=== PATIENT | male | born 1995 | race Caucasian/White ===

== ENCOUNTER → 2017-01-01 | Day surgery (SDC) | payer OTHER ==
[~2017-01-01] VITALS: Ht 180.3 cm; Wt 117.9 kg
--- NOTE | 2017-01-04 19:52 | Operative Report ---
Operative/Inv Procedure Report Surgery Date: 01/01/17 Name of Procedure: Excision of pilonidal cyst with intermediate complexity closure Pre-Operative Diagnosis: Pilonidal cyst Post-Operative Diagnosis: Same Estimated Blood Loss: scant Surgeon/Power Crane Operator: JORDAN LARA,SHRUTHI Fraser Anesthesia: general endotracheal tube Operative/Procedure Note Note: Patient was placed on the OR table in the supine position. After successful induction of general anesthesia, patient was repositioned prone buttocks were clipped prepped and draped and taped apart, and the usual sterile fashion. A very narrow elliptical incision was planned encompassing the strip of crypts at the top of the gluteal cleft, about 3 cm in length, this area was first infiltrated local anesthetic and the incision was made with a 15 blade the cyst was also in the midline, deep. Dissection proceeded bilaterally first through the dermis then deeper into the subcutaneous layers encompassing the cyst and the skin and the crypts all in one piece there was no pus encountered it was removed in one piece off the fascia over the coccyx and cautery was used for hemostasis as well. Then we irrigated the small cavity and closed it in layers using interrupted 3-0 Vicryl sutures deep, spacing them apart to allow for drainage and then closing the skin with 4-0 nylon also leaving gaps for drainage. This area was covered with bacitracin and gauze and tape. EBL minimal Lap and sponge and sponge counts: correct Wound expectancy: Clean IV fluids: crystalloid Complications: none Patient tolerated the procedure well was awakened and extubated and returned to the recovery room in satisfactory condition.
== END ==
LOC: STS 02:41
DX: L05.91 Pilonidal cyst without abscess (principal); F17.200 Nicotine dependence, unspecified, uncomplicated
CPT/HCPCS: 88304; J0131; J0690; J2250